=== PATIENT | male | born 1990 | race Caucasian/White ===

== ENCOUNTER 2022-12-11 08:45 | Emergency (ER) | payer OTHER, SELFPAY ==
[2022-12-11 09:01] VITALS: BP 123/88; PULSE 95; RESP 16; TEMP 36.6; O2SAT 100
--- NOTE | 2022-12-11 09:20 | ED.LOWEXIN ---
HPI - Extremity Injury (Lower) General Chief Complaint: Extremity Injury, Lower Stated Complaint: Left Foot Swelling and Pain Source: patient and RN notes reviewed History of Present Illness HPI Narrative: 32-year-old male presents to urgent care with left medial ankle pain, swelling, and redness. Pt states this started randomly yesterday and today was much worse. Pt states it hurts to apply any pressure to his left foot or heel. Denies any injury. Denies any fevers, chills, chest pain, SOB, or vomiting. Related Data Allergies Allergy/AdvReac Type Severity Reaction Status Date / Time No Known Allergies Allergy Verified 12/11/22 09:16 Review of Systems Review of Systems: CONSTITUTIONAL: Denies fever, chills, or sweats. EYES: Denies visual changes, redness, or discharge. ENT: Denies otalgia and sore throat CARDIOVASCULAR: Denies chest pain, palpitations, or edema. RESPIRATORY: Denies cough or dyspnea. GASTROINTESTINAL: Denies abdominal pain, nausea, vomiting, or diarrhea. GENITOURINARY: Denies dysuria or hematuria. SKIN: Denies rash or itching. MUSCULOSKELETAL: Left medial ankle pain and swelling Pertinent positives per HPI. PMFSH Comments At the time of my signature, I reviewed and agree with the nursing past medical, surgical, social, and family history. There is no relevant family history pertinent to the patient complaint. Exam Narrative: GENERAL: This is a well-nourished, well-developed patient, in no apparent distress. HEAD: normocephalic, atraumatic. EYES: Sclera clear/white. Vision is grossly intact. EARS: External ears normal, auditory canals clear and without drainage. Hearing grossly intact. NOSE: External nose normal with no obvious nasal discharge, nares without redness, no rhinorrhea. THROAT: Mucous membranes moist, posterior pharynx clear. NECK: Neck supple, non-tender without lymphadenopathy, masses or thyromegaly. CARDIOVASCULAR: Regular rate RESPIRATORY: No respiratory distress SKIN: mildly erythremic left medial ankle NEURO: awake, alert, and oriented to person, place and time. There were no obvious focal neurologic abnormalities. EXTREMITIES: Left medial ankle tender, warm to the touch, and edematous. Extending to the posterior heel and plantar heel. BACK: Nontender without deformity or crepitus. No flank tenderness. Course Course Level of Care: Express Care Visit Vital Signs Vital signs: Vital Signs Temperature 97.8 F 12/11/22 09:01 Pulse Rate 95 12/11/22 09:01 Respiratory Rate 16 12/11/22 09:01 Blood Pressure 123/88 12/11/22 09:01 Pulse Oximetry 100 12/11/22 09:01 Temperature 97.8 F 12/11/22 09:01 Pulse Rate 95 12/11/22 09:01 Respiratory Rate 16 12/11/22 09:01 Blood Pressure 123/88 12/11/22 09:01 Pulse Oximetry 100 12/11/22 09:01 reviewed MDM - Extremity Injury (Lower) MDM Narrative Medical decision making narrative: Clean with soap and water only; Avoid using alcohol and peroxide. Elevate the affected area if possible Alternate Tylenol/ibuprofen for as needed for pain Acetaminophen(Tylenol) 650-1000mg every 4-6hours with max of 4000mg/day. Nonsteroidal anti-inflammatory agent (NSAIDs-ibuprofen): 400mg every 4-6hours with max 2400mg/day Take antibiotic until it's gone. Please schedule a follow up visit with your personal physician for further evaluation and treatment within 3-5days OR if your symptoms persist, change or worsen significantly before you can contact your personal physician then please, without delay, go to the emergency department for further evaluation. take the steroids as directed. Go to the ER with any new or worsening symptoms including fevers, vomiting, or red streaking. Differential Diagnosis Differential diagnosis: Likely ankle sprain and strain and other ( gout, septic joint, cellulitis) Discharge Plan Discharge Clinical Impression: Cellulitis Qualifiers: Site of cellulitis: extremity Site of ce
== END 2022-12-11 09:31 | disposition home or self-care (01) ==
PROVIDERS: Emergency Provider Nurse Practitioner Family
DX: L03.116 Cellulitis of left lower limb (principal)
CPT/HCPCS: 99213; G0463